=== PATIENT | female | born 1950 | race Caucasian/White ===

== ENCOUNTER → 2019-10-29 10:01 | Outpatient (CLI) | payer MEDICARE, SELFPAY ==
--- NOTE | ~2019-10-29 | MR_ITS ---
EXAMINATION: MR lumbar spine wo con DATE: 10/29/2019 10:55 INDICATION: Lumbar radiculopathy. Low back pain and left leg pain. TECHNIQUE: Magnetic resonance imaging (MRI) of the lumbar spine was performed without intravenous con trast. Sequences included sagittal T2-weighted FSE, sagittal T2-weighted FS FSE, sagittal T1-weighted FSE, and axial T2-weighted FSE. COMPARISON: None FINDINGS: There is 13 degrees levoscoliosis of thoracic spine and 8 degrees dextrocurvature of lumbar spine. Vertebral body heights are normal. There is mildly decreased disc height at T12-L1 and L1-L2, moderately decreased disc height at L2-L3, mildly decreased disc height at L3-L4, and moderately dec reased disc height at L4-L5 and L5-S1. The distal spinal cord signal intensity is normal. The conus m edullaris is at L1. The following disc levels are specifically discussed: L1-L2: The disc is bulging. There is mild bilateral facet joint osteoarthritis. There is mild bilater al neural foraminal stenosis. There is mild central canal stenosis. L2-L3: The disc is bulging and has an annular fissure. There is mild bilateral facet joint osteoarthr itis. There is mild bilateral neural foraminal stenosis. There is mild central canal stenosis. L3-L4: The disc is bulging. There is mild bilateral facet joint osteoarthritis. There is mild bilater al neural foraminal stenosis. There is mild central canal stenosis. L4-L5: The disc is bulging. There is mild bilateral facet joint osteoarthritis. There is mild bilater al neural foraminal stenosis. There is no central canal stenosis. L5-S1: The disc is bulging. There is mild bilateral facet joint osteoarthritis. There is mild bilater al neural foraminal stenosis. There is mild central canal stenosis. IMPRESSION: 1. Moderate lumbar spondylosis. Reviewed, dictated and finalized at location A.
== END ==
DX: M16.12 Unilateral primary osteoarthritis, left hip (principal); M70.62 Trochanteric bursitis, left hip; M47.26 Other spondylosis with radiculopathy, lumbar region
CPT/HCPCS: 72148

== ENCOUNTER → 2019-12-18 07:43 | Outpatient (CLI) | payer MEDICARE, SELFPAY ==
--- NOTE | ~2019-12-18 | MR_ITS ---
EXAMINATION: MR hip LT wo con DATE: 12/18/2019 08:47 INDICATION: Left hip pain. Hip impingement syndrome. TECHNIQUE: Magnetic resonance imaging (MRI) of the left hip was performed without intravenous contras t. Sequences included axial and coronal PD-weighted FS FSE and axial T1-weighted FSE of the pelvis. S equences of the hip included 2D FIESTA, T1-weighted fast GRE, and axial, coronal, and sagittal PD-justin ghted FS FSE. COMPARISON: None FINDINGS: Bones/cartilage: There is lumbar dextrocurvature and severe spondylosis. No fracture. There is normal femoral head/nec k offset. There is mild right hip osteoarthritis. There is moderate left hip osteoarthritis including deep partial-thickness cartilage loss, worst anterosuperiorly, with subchondral cysts and marginal o steophytes. Labrum: There is a tear of left acetabular labrum. Fluid: There is a small left hip joint effusion. There is mild left-sided trochanteric bursitis. Soft tissues: There is a partial tear of left gluteus minimus tendon. There is mild left gluteus medius tendinopath y. The right gluteal tendons are normal. The iliopsoas tendons are normal. There is mild tendinopathy of the hamstring origins bilaterally. IMPRESSION: 1. Moderate left hip osteoarthritis and mild right hip osteoarthritis. 2. Small left hip joint effusion. 3. Partial tear of left gluteus minimus tendon. Mild left gluteus medius tendinopathy. 4. Mild left-sided trochanteric bursitis. Reviewed, dictated and finalized at location A. IMPRESSION: 1. Moderate left hip osteoarthritis and mild right hip osteoarthritis. 2. Small left hip joint effusion. 3. Partial tear of left gluteus minimus tendon. Mild left gluteus medius tendin opathy. 4. Mild left-sided trochanteric bursitis.
== END ==
PROVIDERS: PCP Emergency Medicine
DX: M25.859 Other specified joint disorders, unspecified hip (principal); M79.652 Pain in left thigh; M16.0 Bilateral primary osteoarthritis of hip; M25.452 Effusion, left hip; S76.812A Strain of other specified muscles, fascia and tendons at thigh level, left thigh, initial encounter; M70.62 Trochanteric bursitis, left hip
CPT/HCPCS: 73721

== ENCOUNTER 2021-05-23 01:37 | Day surgery (SDC) | payer MEDICARE, SELFPAY ==
[2021-04-26 15:20] VITALS: BMI 30.3
--- NOTE | 2021-05-09 14:14 | PC.NURSE ---
Pt updated with new date/time for re-scheduled colonoscopy.
[2021-05-23 09:43] VITALS: BP 131/79; PULSE 99; RESP 20; TEMP 36.6; O2SAT 99; BMI 31.1
[2021-05-23] MEDS: LACTATED RINGERS 1,000 ML 150 ML IV CONT (09:52)
--- NOTE | 2021-05-23 10:09 | WPDGICN ---
Assessment and Plan Assessment and plan (1) Family history of colonic polyps: Code(s): Z83.71 - Family history of colonic polyps Status: Acute Assessment and Plan: Patient has a family history of colon polyps in that her sister has had colon polyps. Plan is for surveillance colonoscopy now on a 5 year intervals in the future. Colonoscopy will also be performed to assess for rectal bleeding while on Xarelto to determine safety of Xarelto and also because of her constipation. She is advised to use Metamucil daily and milk of magnesia or MiraLax once or twice a week as needed for constipation. GI Consult Note Consult date/time: 05/23/21 10:09 HPI: Dex eGronimo is a 70 year old female Presents for colonoscopy. Patient has a family history of colon polyps in her sister. Patient's last colonoscopy 2015 was unremarkable. Patient reports recent difficulties with constipation. She only will occasionally, intermittently use stool softeners. Patient currently on Xarelto. She notices occasional bright red blood per rectum with hard stools. Typically with wiping. She presents today for neoplasia screening. Review of Systems Review of Systems: All systems reviewed & are unremarkable except as noted in HPI and below PMFSH Social History Social History Smoking status: Never smoker Alcohol intake: current Substance use: never Substance use type: does not use Living arrangements: with family Spiritual care concerns: No Meds Home Medications and Allergies Home Medications Medication Instructions Recorded Confirmed Type Women's 50 Plus Daily Formula 1 cap PO DAILY 04/26/21 04/26/21 History ascorbate calcium (vitamin C) 500 mg PO DAILY 04/26/21 04/26/21 History cholecalciferol (vitamin D3) 25 mcg PO DAILY 04/26/21 04/26/21 History [Vitamin D3] lutein 20 mg PO DAILY 04/26/21 04/26/21 History magnesium 250 mg PO DAILY 04/26/21 04/26/21 History melatonin 5 mg PO HS 04/26/21 04/26/21 History montelukast 10 mg PO DAILY 04/26/21 04/26/21 History rivaroxaban [Xarelto] 20 mg PO DAILY 04/26/21 04/26/21 History triamterene-hydrochlorothiazid 1 tablet PO DAILY 04/26/21 04/26/21 History vitamin A 2,400 mcg PO DAILY 04/26/21 04/26/21 History zinc 30 mg PO DAILY 04/26/21 04/26/21 History Allergies Allergy/AdvReac Type Severity Reaction Status Date / Time diazepam Allergy Intermediate Rash Verified 05/23/21 09:42 Vital Signs Vital Signs - 24 hr 05/23/21 09:43 Temperature 97.9 F Pulse Rate 99 Respiratory Rate 20 Blood Pressure 131/79 Pulse Oximetry 99 Exam Narrative: Physical exam reveals patient to be alert. Vital signs stable. HEENT exam is unremarkable. Patient is anicteric. Lungs are clear to auscultation and percussion. Heart is without murmur or extra sounds. Abdominal exam bowel sounds are present soft nontender with no hepatosplenomegaly. Digital external rectal exam is normal.
--- NOTE | 2021-05-23 10:40 | P.PNAN_ITS ---
Anes - Initial Pre Proc Eval Procedure: Operation Date: 05/23/21 11:00 Proposed Procedures p Screening Colonoscopy - Graham Saenz MD Date/Time: 05/23/21 10:40 Surgeon: Graham Saenz MD Pre Op Diagnosis: hx colon polyps Patient Data Age: 70 Gender: F Height: 1.68 m Weight: 87.4 kg Last Vital Signs Temp 97.9 F 05/23/21 09:43 Pulse 99 05/23/21 09:43 Resp 20 05/23/21 09:43 BP 131/79 05/23/21 09:43 Pulse Ox 99 05/23/21 09:43 Allergies Allergy/AdvReac Type Severity Reaction Status Date / Time diazepam Allergy Intermediate Rash Verified 05/23/21 09:42 Home Medications Medication Instructions Recorded Confirmed Type Women's 50 Plus Daily Formula 1 cap PO DAILY 04/26/21 04/26/21 History ascorbate calcium (vitamin C) 500 mg PO DAILY 04/26/21 04/26/21 History cholecalciferol (vitamin D3) 25 mcg PO DAILY 04/26/21 04/26/21 History [Vitamin D3] lutein 20 mg PO DAILY 04/26/21 04/26/21 History magnesium 250 mg PO DAILY 04/26/21 04/26/21 History melatonin 5 mg PO HS 04/26/21 04/26/21 History montelukast 10 mg PO DAILY 04/26/21 04/26/21 History rivaroxaban [Xarelto] 20 mg PO DAILY 04/26/21 04/26/21 History triamterene-hydrochlorothiazid 1 tablet PO DAILY 04/26/21 04/26/21 History vitamin A 2,400 mcg PO DAILY 04/26/21 04/26/21 History zinc 30 mg PO DAILY 04/26/21 04/26/21 History Patient hx anesthesia problems: none Family hx anesthesia problems: none Results Review: All pre-operative results and documents have been reviewed as part of the pre-operative evaluation. [facility] Social History Social History Smoking status: Never smoker Alcohol intake: current Substance use: never Substance use type: does not use Living arrangements: with family Spiritual care concerns: No Anes - Eval Final PreProcedure Day of Procedure 05/23/21 10:40 Patient weight: obese Heart: regular rate and rhythm Lungs: clear to auscultation Airway: Mallampati scale Neurological: alert and oriented Last oral intake: >/= 8 hours ASA classification: III Emergent: no Anesthetic plan: proceed Anesthesia type and monitoring: general GIVS and standard monitoring Results Review: All pre-operative results and documents have been reviewed as part of the pre-operative evaluation. Informed Consent: The patient's anesthetic plan and its attendant risks and benefits were discussed with the patient/family/POA. Questions were solicited and answers provided to the satisfaction of the patient/family/POA.
[2021-05-23 11:00] VITALS: BP 98/59; PULSE 64; RESP 18; O2SAT 97
[2021-05-23 11:10] VITALS: BP 111/70; PULSE 64; RESP 19; O2SAT 98
[2021-05-23 11:20] VITALS: BP 139/87; PULSE 68; RESP 19; O2SAT 100
--- NOTE | 2021-05-23 11:24 | SUR.PHASEII ---
PATIENT INSTRUCTED TO RESUME XARELTO TODAY PER DR GOODMAN. DOCUMENTATION GIVEN TO PATIENT. PATIENT AWARE.
== END 2021-05-23 11:30 | disposition home or self-care (01) ==
PROVIDERS: PCP Family Medicine; Visit Provider Internal Medicine Gastroenterology
PROC: 0DJD8ZZ Inspection of Lower Intestinal Tract, Via Natural or Artificial Opening Endoscopic (ICD-10-PCS; CPT 45378; principal; 2021-05-23 11:00)
DX: Z12.11 Encounter for screening for malignant neoplasm of colon (principal); Z83.71 Family history of colonic polyps; K64.8 Other hemorrhoids; K57.30 Diverticulosis of large intestine without perforation or abscess without bleeding; K62.5 Hemorrhage of anus and rectum; Z79.01 Long term (current) use of anticoagulants; E66.9 Obesity, unspecified; Z68.31 Body mass index [BMI] 31.0-31.9, adult
CPT/HCPCS: G0105; J2704; J7120